=== PATIENT | female | born 1955 | race Caucasian/White ===

== ENCOUNTER 2023-05-15 10:54 | Outpatient (AMB) | payer MEDICARE, MEDICAID, SELFPAY ==
--- NOTE | 2023-05-15 10:59 | A.OFFVIS_ITS ---
Intake Vital Signs 05/15/23 11:11 Height 5 ft BMI Reason not done Patient refused/unable BP 140/90 H Blood Pressure Location Rt brachial Position Sitting Pulse 66 Pulse Source Pulse Oximeter Temp 97 F Temp Source Skin Pulse Oximetry (%) 96 Oxygen Delivery Method Room Air Comment 120 lbs per patient, on wheelchair Intake Visit Reasons: RA Intake Note: New patient here for RA. Former rheumatology patient from [facility]. 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 Accompanied by: Other Relationship Allergies No Known Allergies Allergy (Verified 05/15/23 11:11) Medication List - Last Reconciled 05/15/23 by Virgilio Bridges MD cholecalciferol (vitamin D3) (Vitamin D3) 25 mcg PO DAILY folic acid 1 mg PO DAILY gabapentin mg PO BID lisinopril 20 mg PO DAILY melatonin 10 mg PO BEDTIME methotrexate (PF) 15 mg subcut QWEEK metoprolol tartrate 75 mg PO BID morphine ER 30 mg PO TID PRN wexxuebe-naw-xsma fum-folic ac 7.5 mg iron-400 mcg tabs PO naproxen 500 mg PO BID omeprazole 20 mg PO DAILY trazodone 200 mg PO BEDTIME PRN HPI HPI Comments History of Present Illness Details Patient presents for evaluation of her rheumatoid arthritis. She is accompanied by an attendant from the [facility] that [facility] lives in at [address] [facility] in [place]. The patient has lived there for about 2 years. She has had rheumatoid arthritis since age 12. I do not have old records but the patient recalls previous treatments with gold salts, oral methotrexate and in recent decades parental methotrexate. She has been seen at [facility] by Dr. Newton a few times but no rheumatology visits in the last year. She is managed by a primary doctor name Felisha Pollard at [facility]. The patient reports that he she feels the joints are doing fairly well with the current regimen and she wants to stay on the methotrexate. She also takes naproxen 500 mg b.i.d. folic acid 1 mg daily, gabapentin 100 b.i.d. and extended release morphine 30 mg t.i.d. at the present time there is a nurse that visits the home and administers the methotrexate for the patient. They had felt that she was not capable of managing this syringes and drying up the product because of her hand deformities. She tends to disagree with that but none the less has accepted them giving her the shots. She gets lab work every few months. With the records I have reviewed the last were done last fall but she claims there were more recent labs done. She has trouble sleeping at night and takes 200 mg trazodone at night, melatonin, and the above-mentioned gabapentin. She has had bilateral knee replacements which seem to be reasonably comfortable but she says she cannot stand because of continued pain in the right hip. The left hip replacement she thinks also has loosened and it is painful. She does transfers from the chair but has not stood up in years. She also had surgery on the left elbow 25 years ago. In the last 10 years the elbow has dislocated. She does not have any pain but the arm is pretty useless. She is able to hold the forearm with the other hand in the hand still grass somewhat effectively. She gets some assistance with dressing but is able to feed herself. It sounds like she was last at home alone about 6 years ago. She spent 4 years of her life living at a longterm and then with COVID she was transferred to the [facility] that she currently is living at. Apparently recently some sertraline was started for depressive symptoms. [facility] Medical History (Updated 05/15/23 @ 18:01 by Virgilio Bridges MD) Hx of breast cancer History of DVT of lower extremity History of chronic pain Hx of rheumatoid arthritis Anxiety HTN (hypertension) Surgical History Hx of shoulder surgery History of surgery on right wrist History of bilateral knee replacement History of hip surgery Hx of mastectomy Social History (Updated 05/15/23 @ 11:05 by JOCELYNE Vaughn) Household Members Other:: [facility] Housing: Other Housing Other:: [employer] Alcohol intake: former Patient Tobacco Use Status: Former Tobacco user Review of Systems Const Details: Negative for appetite change, weight change, fever, chills, malaise and fatigue Eyes Details: Negative for vision change, dry eyes,headaches and dizziness ENT Details: Negative for hearing change, tinnitus, oral ulcer, nose bleeds and oral dryness. Card Details: Negative chest pain, edema and syncope Resp Details: Negative for SOB, cough and wheezing GI Details: Negative indigestion/heartburn, nausea, abdominal pain, bowel changes, diarrhea, constipation and bloody stool. Details: Negative for dysuria, hematuria, nocturia, decreased force/flow and genital discharge Skin/Breast Details: She had a sore on the right 1st toe that seems to be healing. Negative for itching, rash, hives, Raynaud's symptoms, sun sensitivity, and skin cancer Neuro Details: Negative for epilepsy, palsy, stroke, changes in speech, tingling and weakness Psych Details: Negative for anxiety, depression and stress Endo Details: Negative for polyuria and polydypsia Gregorio/Lymph Details: Negative for excessive bruising or bleeding. Physical Exam Vital Signs: Last Vital Signs Temp 97 F 05/15/23 11:11 Pulse 66 05/15/23 11:11 BP 140/90 H 05/15/23 11:11 Pulse Ox 96 05/15/23 11:11 Oxygen Delivery Method Room Air 05/15/23 11:11 APPEARANCE: Patient in no acute distress; examined in her wheelchair EYES no redness, pupils equal and reactive to light, eyelids normal EARS: External ear normal, canal clear and tympanic membrane normal. NOSE/SINUS: Airflow through both nares, no nasal discharge, no bleeding THROAT: Oral mucosa moist, no ulcerations NECK: No thyromegaly or masses, no adenopathy, trachea midline. HEART: Regulrar rhythm, S1-S2 heard, no murmurs, rubs or gallops. LUNG: Clear to percussion and auscultation ABD: Normal bowel sounds, no organomegaly, masses or tenderness. EXTREMITIES: No edema, no calf tenderness, normal peripheral pulses. NEURO: Oriented and alert x3. No focal weakness. Reflexes symmetric. No focal weakness. SKIN: There is a 3-4 mm healing ulcer of th right 1st toe. The surrounding tissue does not look infected. No other inflammatory or neoplastic lesions. Normal color and turgor JOINT EXAM:.?? Cervical Spine: Some decrease in range of motion but without pain. No tenderness. Thoracic Spine:.? No scoliosis.? No tenderness on palpation. Lumbar Spine:.? Alignment normal.? No tenderness. Chest Wall:.? No tenderness, swelling, increased warmth or erythema. Hands: Right: There is MCP swelling with proximal phalanx subluxation in all the digits. There is also some mild small tissue swelling in the PIP joints and ulnar deviation with flexion deformity at the MCPs. None of these areas are tender. No sensory loss. Left: Mild soft tissue swelling, flexion deformity and subluxation at the MCP joints. None of these MCPs are tender however. Some degree of flexion deformity at the PIP is without tenderness. No sensory loss. No breaks in the skin. Wrists:.? Right: The wrist has about 10 degrees of flexion or extension with ulnar deviation but no tenderness. There is some slight thickening but no redness or warmth. Left: She flexes and extends only about 30 degrees with no pain. No tenderness or swelling. Some ulnar deviation. Elbows:. Right: She flexes to about 100 degrees. She lacks about 40 degrees of full extension. There is soft tissue swelling and slight tenderness over the elbow joint. There is a soft tissue, fluctuant lump over the olecranon but no drainage, tenderness or redness. Left: The left elbow joint is not really palpable. One can feel the end of the humerus which apparently has been dislocated or fractured away from the previous joint. The area is not tender. There are no breaks in the skin. She has no ability to maneuver the forearm at the elbow. The proximal forearm is some thickening consistent with the remains of her previous joint but is not tender. She can peanut picker the left forearm with the right hand and maneuver the hand to functional position that she can grass with the left hand. Shoulders: Right: Mild pain with abduction to 135 degrees. There is pain with more than 20 degrees of internal or external rotation with minimal anterior tenderness. There is some abductor weakness but no swelling. Left: Mild to moderate pain with abduction at 100 degrees or with attempts at rotation. There is some abductor weakness but no swelling. No adenopathy. Hips:.? Not examined today because she is in the wheelchair. Hip bursa:.? Not examined Knees:.?? There are signs of surgical scars anteriorly in both knees. Left knee has pain-free range of motion. The right knee has some mild discomfort at the extremes of flexion or extension. No tenderness, fluctuance, redness or swelling. Ankles:.? There is some valgus deformity of both ankles. Inversion and eversion are limited but AP motion seems to be intact with mild pain at the extremes. No tenderness. Feet:.? There is bilateral pes planus deformity and valgus at the ankle. There is lateral deviation of all the toes with some slight thickening at the 1st 3 MTPs bilaterally. None of these areas are tender. On the medial aspect of the right 1st toe is an eschar that seems to be healing. No signs of infection currently. ? Results Reviewed Results Reviewed: Longstanding, destructive and deforming rheumatoid arthritis with currently not much in the way of tender joints. I think most disease is been either burnt out or is controlled with current methotrexate. It sounds like she has had some monitoring of the blood work within the last year but I do not have the details. We will see if we can get lab work today. If that is okay she can certainly stay with the current dose of methotrexate. Another lab should be done in about 3 months and we will try to schedule her back here for 6 month return where we can do lab work at that point. It sounds like she has had orthopedic evaluation in the past to see if she could be rehabilitated with surgery on the right hip but it was declined even at [facility]. She is not all that uncomfortable although is on 30 mg t.i.d. of MS Jony. She says she does not want to try to taper that currently. Laboratory Tests 05/15/23 12:00 WBC 8.9 Hgb 14.6 ESR 2 Creatinine 0.65 AST 14 ALT 10 C-Reactive Protein 0.12 Assessment & Plan Assessment & Plan (1) detention use of drug: Code(s): Z79.899 - Other custodial (current) drug therapy (2) Rheumatoid arthritis: Code(s): M06.9 - Rheumatoid arthritis, unspecified Plan Longstanding, destructive and deforming rheumatoid arthritis with currently not much in the way of tender joints. I think most of the RA has been either burnt out or is controlled with current methotrexate. It sounds like she has had some monitoring of the blood work within the last year but I do not have the details. We were able to get lab work today. If that is okay she can certainly stay with the current dose of methotrexate. Another lab should be done in about 3 months (CBC and Chem panel) and we will try to schedule her back here for a 6 month return and we can do lab work at that point. It sounds like she has had orthopedic evaluations in the past to see if she could be rehabilitated with surgery on the right hip but she says surgery was declined even at [facility]. She is not all that uncomfortable although is on 30 mg t.i.d. of MS Contin. She says she does not want to try to taper that currently. Orders: Orders Alanine Aminotransferase Today Z79.899 - Other custodial (current) drug therapy Aspartate Amino Transferase Today Z79.899 - Other custodial (current) drug therapy C Reactive Protein Today M06.9 - Rheumatoid arthritis, unspecified Complete Blood Count Auto Diff Today Z79.899 - Other custodial (current) drug therapy Erythrocyte Sedimentation Rate Today M06.9 - Rheumatoid arthritis, unspecified Creatinine Today Z79.899 - Other manager long term care (current) drug therapy Medications: New sertraline 50 mg PO DAILY 30 tabs 5RF Coding Level of Care Code New Pt Level 3 (23278) Diagnoses detention use of drug Z79.899 Rheumatoid arthritis M06.9
[2023-05-15 11:11] VITALS: BP 140/90; PULSE 66; TEMP 36.1; O2SAT 96
--- NOTE | 2023-05-17 18:56 | A.OFFVIS_ITS ---
Intake Vital Signs 05/15/23 11:11 Height 5 ft BMI Reason not done Patient refused/unable BP 140/90 H Blood Pressure Location Rt brachial Position Sitting Pulse 66 Pulse Source Pulse Oximeter Temp 97 F Temp Source Skin Pulse Oximetry (%) 96 Oxygen Delivery Method Room Air Comment 120 lbs per patient, on wheelchair Intake Visit Reasons: RA Allergies No Known Allergies Allergy (Verified 05/15/23 11:11) Medication List - Last Reconciled 05/15/23 by Virgilio Bridges MD cholecalciferol (vitamin D3) (Vitamin D3) 25 mcg PO DAILY folic acid 1 mg PO DAILY gabapentin mg PO BID lisinopril 20 mg PO DAILY melatonin 10 mg PO BEDTIME methotrexate (PF) 15 mg subcut QWEEK metoprolol tartrate 75 mg PO BID morphine ER 30 mg PO TID PRN wbljdohe-ohu-sdys fum-folic ac 7.5 mg iron-400 mcg tabs PO naproxen 500 mg PO BID omeprazole 20 mg PO DAILY trazodone 200 mg PO BEDTIME PRN PFSH Medical History (Updated 05/15/23 @ 18:01 by Virgilio Bridges MD) Hx of breast cancer History of DVT of lower extremity History of chronic pain Hx of rheumatoid arthritis Anxiety HTN (hypertension) Surgical History Hx of shoulder surgery History of surgery on right wrist History of bilateral knee replacement History of hip surgery Hx of mastectomy Social History (Updated 05/15/23 @ 11:05 by JOCELYNE Vaughn) Household Members Other:: [facility] Housing: Other Housing Other:: [employer] Alcohol intake: former Patient Tobacco Use Status: Former Tobacco user Physical Exam Vital Signs: Last Vital Signs Temp 97 F 05/15/23 11:11 Pulse 66 05/15/23 11:11 BP 140/90 H 05/15/23 11:11 Pulse Ox 96 05/15/23 11:11 Oxygen Delivery Method Room Air 05/15/23 11:11 Assessment & Plan Assessment & Plan (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: Code(s): Z79.899 - Other [facility] (current) drug therapy (2) Rheumatoid arthritis: Code(s): M06.9 - Rheumatoid arthritis, unspecified Orders: Orders Alanine Aminotransferase 09/19/23 Z79.899 - Other [facility] (current) drug therapy Aspartate Amino Transferase 05/15/23 Z79.899 - Other [facility] (current) drug therapy C Reactive Protein 05/15/23 M06.9 - Rheumatoid arthritis, unspecified Complete Blood Count Auto Diff 05/15/23 Z79.899 - 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
== END 2023-05-15 11:51 | disposition home or self-care (01) ==
PROVIDERS: PCP Family Medicine; Visit Provider Internal Medicine Rheumatology
DX: Z79.899 Other long term (current) drug therapy (principal); M06.9 Rheumatoid arthritis, unspecified
CPT/HCPCS: 99203

== ENCOUNTER → 2023-05-15 10:54 | Outpatient (BNVA) | payer MEDICARE, MEDICAID, SELFPAY | PROVIDERS: Visit Provider Internal Medicine Rheumatology ==

== ENCOUNTER 2023-05-15 11:54 | Outpatient (REF) | payer MEDICARE, MEDICAID, SELFPAY ==
[2023-05-15 13:34] LABS: MANUAL DIFF FLAG NO
[2023-05-15 13:43] LABS: Basophils Percent Auto 0.2 % (0-2); Eosinophils Absolute Auto 0.1 X10*3/uL (0.0-0.4); Eosinophils Percent Auto 0.7 % (0-4); Hematocrit 43.4 % (37.0-47.0); Hemoglobin 14.6 g/dl (12.0-16.0); Imm Gran Abs Auto 0.03 X10*3/uL (0.00-0.03); Imm Gran Pct Auto 0.3 % (0.0-0.4); Lymphocytes Absolute Auto 1.2 X10*3/uL (1.2-4.9); Lymphocytes Percent Auto 13.2 % (20-40); Mean Corpuscular HGB Conc 33.6 g/dl (31.0-35.0); Mean Corpuscular Hemoglobin 32.7 pg (27.0-33.0); Mean Corpuscular Volume 97.1 fL (80.0-98.0); Mean Platelet Volume 11.1 fL (9.4-12.3); Monocytes Absolute Auto 0.5 X10*3/uL (0.1-1.2); Neutrophils Absolute Auto 7.2 x10*3/uL (2.0-8.3); Neutrophils Percent Auto 80.6 % (45-73); Platelet Count 317 X10*3/uL (160-400); Red Blood Count 4.47 X10*6/uL (4.20-5.50); Red Cell Distribution Width 12.8 % (11.0-16.0); White Blood Count 8.9 X10*3/uL (4.8-10.8)
[2023-05-15 14:01] LABS: Alanine Aminotransferase 10 U/L (0-31); Aspartate Amino Transferase 14 U/L (5-31); C Reactive Protein 0.12 mg/dL (< or = 0.50); Estimated Glomerular Filt Rate > 60
[2023-05-15 15:23] LABS: Erythrocyte Sedimentation Rate 2 MM/HR (0-20)
== END 2023-05-15 11:55 | disposition home or self-care (01) ==
LOC: HO.10HDL 11:54
PROVIDERS: Visit Provider Internal Medicine Rheumatology
DX: M06.9 Rheumatoid arthritis, unspecified (principal); Z79.899 Other long term (current) drug therapy
CPT/HCPCS: 36415; 82565; 84450; 84460; 85025; 85652; 86140

== ENCOUNTER 2024-05-19 06:28 | Outpatient (REF) | payer MEDICARE, MEDICAID, SELFPAY ==
[2024-05-19 06:05] LABS: MANUAL DIFF FLAG NO
[2024-05-19 07:03] LABS: Basophils Percent Auto 0.3 % (0-2); Eosinophils Absolute Auto 0.3 X10*3/uL (0.0-0.4); Eosinophils Percent Auto 3.2 % (0-4); Hematocrit 31.2 % (37.0-47.0); Hemoglobin 9.5 g/dl (12.0-16.0); Imm Gran Abs Auto 0.05 X10*3/uL (0.00-0.03); Imm Gran Pct Auto 0.5 % (0.0-0.4); Lymphocytes Absolute Auto 1.5 X10*3/uL (1.2-4.9); Lymphocytes Percent Auto 15.9 % (20-40); Mean Corpuscular HGB Conc 30.4 g/dl (31.0-35.0); Mean Corpuscular Hemoglobin 27.5 pg (27.0-33.0); Mean Corpuscular Volume 90.2 fL (80.0-98.0); Mean Platelet Volume 11.3 fL (9.4-12.3); Monocytes Absolute Auto 0.7 X10*3/uL (0.1-1.2); Monocytes Percent Auto 7.6 % (2-11); Neutrophils Absolute Auto 6.9 x10*3/uL (2.0-8.3); Neutrophils Percent Auto 72.5 % (45-73); Platelet Count 420 X10*3/uL (160-400); Red Blood Count 3.46 X10*6/uL (4.20-5.50); Red Cell Distribution Width 13.4 % (11.0-16.0); White Blood Count 9.5 X10*3/uL (4.8-10.8)
[2024-05-19 07:26] LABS: Alanine Aminotransferase 12 U/L (0-31); Albumin Level 3.2 g/dL (3.5-5.0); Alkaline Phosphatase 92 U/L (39-117); Anion Gap 13 (12-20); Aspartate Amino Transferase 15 U/L (5-31); Bilirubin Direct < 0.2 mg/dL (0.0-0.5); Bilirubin Total 0.2 mg/dL (0.0-1.0); Blood Urea Nitrogen 25 mg/dL (9-16); Calcium 9.6 mg/dL (8.4-10.2); Carbon Dioxide 26 mmol/L (22-29); Chloride 107 mmol/L (96-108); Estimated Glomerular Filt Rate > 60; Glucose Random 83 mg/dL (60-115); Potassium 4.6 mmol/L (3.3-5.1); Sodium 141 mmol/L (135-145); Total Protein 6.3 g/dL (6.5-8.0)
== END 2024-05-19 06:29 | disposition home or self-care (01) ==
LOC: HO.MMNH1L 06:28
PROVIDERS: Visit Provider Hospitalist
DX: A49.02 Methicillin resistant Staphylococcus aureus infection, unspecified site (principal); I10 Essential (primary) hypertension
CPT/HCPCS: 36415; 80053; 82248; 82550; 85025

== ENCOUNTER 2024-05-26 06:57 | Outpatient (REF) | payer MEDICARE, MEDICAID, SELFPAY ==
[2024-05-26 05:48] LABS: MANUAL DIFF FLAG NO
[2024-05-26 06:57] LABS: Basophils Percent Auto 0.3 % (0-2); Eosinophils Absolute Auto 0.4 X10*3/uL (0.0-0.4); Eosinophils Percent Auto 4.4 % (0-4); Hematocrit 32.4 % (37.0-47.0); Hemoglobin 9.7 g/dl (12.0-16.0); Imm Gran Abs Auto 0.06 X10*3/uL (0.00-0.03); Imm Gran Pct Auto 0.7 % (0.0-0.4); Lymphocytes Absolute Auto 1.8 X10*3/uL (1.2-4.9); Lymphocytes Percent Auto 19.6 % (20-40); Mean Corpuscular HGB Conc 29.9 g/dl (31.0-35.0); Mean Corpuscular Hemoglobin 26.9 pg (27.0-33.0); Mean Corpuscular Volume 89.8 fL (80.0-98.0); Mean Platelet Volume 11.2 fL (9.4-12.3); Monocytes Absolute Auto 0.8 X10*3/uL (0.1-1.2); Monocytes Percent Auto 8.6 % (2-11); Neutrophils Percent Auto 66.4 % (45-73); Platelet Count 398 X10*3/uL (160-400); Red Blood Count 3.61 X10*6/uL (4.20-5.50); Red Cell Distribution Width 13.5 % (11.0-16.0)
[2024-05-26 07:25] LABS: Anion Gap 14 (12-20); Blood Urea Nitrogen 31 mg/dL (9-16); Calcium 9.7 mg/dL (8.4-10.2); Carbon Dioxide 25 mmol/L (22-29); Chloride 106 mmol/L (96-108); Estimated Glomerular Filt Rate > 60; Glucose Random 78 mg/dL (60-115); Potassium 4.6 mmol/L (3.3-5.1); Sodium 140 mmol/L (135-145)
== END 2024-05-26 06:58 | disposition home or self-care (01) ==
LOC: HO.MMNH1L 06:57
PROVIDERS: Visit Provider Hospitalist
DX: A49.02 Methicillin resistant Staphylococcus aureus infection, unspecified site (principal); I10 Essential (primary) hypertension
CPT/HCPCS: 36415; 80048; 85025

== ENCOUNTER 2024-06-02 06:31 | Outpatient (REF) | payer MEDICARE, MEDICAID, SELFPAY ==
[2024-06-02 06:13] LABS: MANUAL DIFF FLAG NO
[2024-06-02 07:10] LABS: Basophils Percent Auto 0.3 % (0-2); Eosinophils Absolute Auto 0.3 X10*3/uL (0.0-0.4); Eosinophils Percent Auto 3.6 % (0-4); Hematocrit 31.3 % (37.0-47.0); Hemoglobin 9.7 g/dl (12.0-16.0); Imm Gran Abs Auto 0.02 X10*3/uL (0.00-0.03); Imm Gran Pct Auto 0.3 % (0.0-0.4); Lymphocytes Absolute Auto 1.4 X10*3/uL (1.2-4.9); Lymphocytes Percent Auto 18.1 % (20-40); Mean Corpuscular Volume 87.2 fL (80.0-98.0); Mean Platelet Volume 11.9 fL (9.4-12.3); Monocytes Absolute Auto 0.5 X10*3/uL (0.1-1.2); Monocytes Percent Auto 6.6 % (2-11); Neutrophils Absolute Auto 5.6 x10*3/uL (2.0-8.3); Neutrophils Percent Auto 71.1 % (45-73); Platelet Count 303 X10*3/uL (160-400); Red Blood Count 3.59 X10*6/uL (4.20-5.50); Red Cell Distribution Width 13.7 % (11.0-16.0); White Blood Count 7.8 X10*3/uL (4.8-10.8)
[2024-06-02 07:27] LABS: Anion Gap 10 (12-20); Blood Urea Nitrogen 30 mg/dL (9-16); Calcium 9.4 mg/dL (8.4-10.2); Carbon Dioxide 27 mmol/L (22-29); Chloride 108 mmol/L (96-108); Estimated Glomerular Filt Rate > 60; Glucose Random 84 mg/dL (60-115); Sodium 141 mmol/L (135-145)
== END 2024-06-02 06:32 | disposition home or self-care (01) ==
LOC: HO.MMNH1L 06:31
PROVIDERS: Visit Provider Hospitalist
DX: A49.02 Methicillin resistant Staphylococcus aureus infection, unspecified site (principal); I10 Essential (primary) hypertension
CPT/HCPCS: 36415; 80048; 85025

== ENCOUNTER 2024-06-09 06:47 | Outpatient (REF) | payer MEDICARE, MEDICAID, SELFPAY ==
[2024-06-09 06:04] LABS: MANUAL DIFF FLAG NO
[2024-06-09 07:14] LABS: Basophils Percent Auto 0.3 % (0-2); Eosinophils Absolute Auto 0.3 X10*3/uL (0.0-0.4); Hematocrit 33.6 % (37.0-47.0); Hemoglobin 10.2 g/dl (12.0-16.0); Imm Gran Abs Auto 0.05 X10*3/uL (0.00-0.03); Imm Gran Pct Auto 0.5 % (0.0-0.4); Lymphocytes Absolute Auto 1.5 X10*3/uL (1.2-4.9); Lymphocytes Percent Auto 15.1 % (20-40); Mean Corpuscular HGB Conc 30.4 g/dl (31.0-35.0); Mean Corpuscular Hemoglobin 26.5 pg (27.0-33.0); Mean Corpuscular Volume 87.3 fL (80.0-98.0); Mean Platelet Volume 11.6 fL (9.4-12.3); Monocytes Absolute Auto 0.7 X10*3/uL (0.1-1.2); Monocytes Percent Auto 7.2 % (2-11); Neutrophils Absolute Auto 7.1 x10*3/uL (2.0-8.3); Neutrophils Percent Auto 73.9 % (45-73); Platelet Count 327 X10*3/uL (160-400); Red Blood Count 3.85 X10*6/uL (4.20-5.50); Red Cell Distribution Width 14.6 % (11.0-16.0); White Blood Count 9.6 X10*3/uL (4.8-10.8)
[2024-06-09 07:16] LABS: Anion Gap 14 (12-20); Blood Urea Nitrogen 25 mg/dL (9-16); Calcium 9.3 mg/dL (8.4-10.2); Carbon Dioxide 26 mmol/L (22-29); Chloride 105 mmol/L (96-108); Estimated Glomerular Filt Rate > 60; Glucose Random 86 mg/dL (60-115); Potassium 4.3 mmol/L (3.3-5.1); Sodium 141 mmol/L (135-145)
== END 2024-06-09 06:48 | disposition home or self-care (01) ==
LOC: HO.MMNH1L 06:47
PROVIDERS: Visit Provider Hospitalist
DX: A49.02 Methicillin resistant Staphylococcus aureus infection, unspecified site (principal); I10 Essential (primary) hypertension
CPT/HCPCS: 36415; 80048; 85025

== ENCOUNTER 2024-06-16 06:32 | Outpatient (REF) | payer MEDICARE, MEDICAID, SELFPAY ==
[2024-06-16 06:01] LABS: MANUAL DIFF FLAG NO
[2024-06-16 07:03] LABS: Basophils Percent Auto 0.3 % (0-2); Eosinophils Absolute Auto 0.2 X10*3/uL (0.0-0.4); Eosinophils Percent Auto 1.8 % (0-4); Hematocrit 33.8 % (37.0-47.0); Hemoglobin 10.3 g/dl (12.0-16.0); Imm Gran Abs Auto 0.03 X10*3/uL (0.00-0.03); Imm Gran Pct Auto 0.3 % (0.0-0.4); Lymphocytes Absolute Auto 1.3 X10*3/uL (1.2-4.9); Lymphocytes Percent Auto 11.7 % (20-40); Mean Corpuscular HGB Conc 30.5 g/dl (31.0-35.0); Mean Corpuscular Hemoglobin 26.1 pg (27.0-33.0); Mean Corpuscular Volume 85.8 fL (80.0-98.0); Mean Platelet Volume 11.1 fL (9.4-12.3); Monocytes Absolute Auto 0.8 X10*3/uL (0.1-1.2); Monocytes Percent Auto 7.4 % (2-11); Neutrophils Absolute Auto 8.9 x10*3/uL (2.0-8.3); Neutrophils Percent Auto 78.5 % (45-73); Platelet Count 373 X10*3/uL (160-400); Red Blood Count 3.94 X10*6/uL (4.20-5.50); Red Cell Distribution Width 14.2 % (11.0-16.0); White Blood Count 11.4 X10*3/uL (4.8-10.8)
[2024-06-16 07:33] LABS: Anion Gap 14 (12-20); Blood Urea Nitrogen 25 mg/dL (9-16); Calcium 9.5 mg/dL (8.4-10.2); Carbon Dioxide 24 mmol/L (22-29); Chloride 106 mmol/L (96-108); Estimated Glomerular Filt Rate > 60; Glucose Random 100 mg/dL (60-115); Potassium 3.9 mmol/L (3.3-5.1); Sodium 140 mmol/L (135-145)
== END 2024-06-16 06:33 | disposition home or self-care (01) ==
LOC: HO.MMNH1L 06:32
PROVIDERS: Visit Provider Hospitalist
DX: A49.02 Methicillin resistant Staphylococcus aureus infection, unspecified site (principal); I10 Essential (primary) hypertension
CPT/HCPCS: 36415; 80048; 85025

== ENCOUNTER 2024-06-23 06:23 | Outpatient (REF) | payer MEDICARE, SELFPAY ==
[2024-06-23 06:02] LABS: MANUAL DIFF FLAG NO
[2024-06-23 07:07] LABS: Basophils Percent Auto 0.3 % (0-2); Eosinophils Absolute Auto 0.2 X10*3/uL (0.0-0.4); Eosinophils Percent Auto 2.8 % (0-4); Hematocrit 31.6 % (37.0-47.0); Hemoglobin 9.9 g/dl (12.0-16.0); Imm Gran Abs Auto 0.03 X10*3/uL (0.00-0.03); Imm Gran Pct Auto 0.4 % (0.0-0.4); Lymphocytes Absolute Auto 1.9 X10*3/uL (1.2-4.9); Lymphocytes Percent Auto 27.1 % (20-40); Mean Corpuscular HGB Conc 31.3 g/dl (31.0-35.0); Mean Corpuscular Hemoglobin 26.5 pg (27.0-33.0); Mean Corpuscular Volume 84.7 fL (80.0-98.0); Mean Platelet Volume 11.5 fL (9.4-12.3); Monocytes Absolute Auto 0.6 X10*3/uL (0.1-1.2); Monocytes Percent Auto 8.7 % (2-11); Neutrophils Absolute Auto 4.3 x10*3/uL (2.0-8.3); Neutrophils Percent Auto 60.7 % (45-73); Platelet Count 324 X10*3/uL (160-400); Red Blood Count 3.73 X10*6/uL (4.20-5.50); Red Cell Distribution Width 13.8 % (11.0-16.0); White Blood Count 7.1 X10*3/uL (4.8-10.8)
[2024-06-23 07:12] LABS: Anion Gap 14 (12-20); Blood Urea Nitrogen 31 mg/dL (9-16); Calcium 9.5 mg/dL (8.4-10.2); Carbon Dioxide 23 mmol/L (22-29); Chloride 103 mmol/L (96-108); Estimated Glomerular Filt Rate > 60; Glucose Random 78 mg/dL (60-115); Potassium 4.2 mmol/L (3.3-5.1); Sodium 136 mmol/L (135-145)
== END 2024-06-23 06:24 | disposition home or self-care (01) ==
LOC: HO.MMNH1L 06:23
PROVIDERS: Visit Provider Hospitalist
DX: A49.02 Methicillin resistant Staphylococcus aureus infection, unspecified site (principal); I10 Essential (primary) hypertension
CPT/HCPCS: 36415; 80048; 85025

== ENCOUNTER 2024-06-30 06:25 | Outpatient (REF) | payer MEDICARE, MEDICAID, SELFPAY ==
[2024-06-30 06:00] LABS: MANUAL DIFF FLAG NO
[2024-06-30 07:01] LABS: Anion Gap 15 (12-20); Blood Urea Nitrogen 19 mg/dL (9-16); Calcium 9.8 mg/dL (8.4-10.2); Carbon Dioxide 23 mmol/L (22-29); Chloride 104 mmol/L (96-108); Estimated Glomerular Filt Rate > 60; Glucose Random 92 mg/dL (60-115); Potassium 4.1 mmol/L (3.3-5.1); Sodium 138 mmol/L (135-145)
[2024-06-30 07:02] LABS: Basophils Percent Auto 0.2 % (0-2); Eosinophils Absolute Auto 0.1 X10*3/uL (0.0-0.4); Eosinophils Percent Auto 1.3 % (0-4); Hematocrit 33.9 % (37.0-47.0); Hemoglobin 10.7 g/dl (12.0-16.0); Imm Gran Abs Auto 0.03 X10*3/uL (0.00-0.03); Imm Gran Pct Auto 0.4 % (0.0-0.4); Lymphocytes Absolute Auto 1.1 X10*3/uL (1.2-4.9); Lymphocytes Percent Auto 13.4 % (20-40); Mean Corpuscular HGB Conc 31.6 g/dl (31.0-35.0); Mean Corpuscular Hemoglobin 25.7 pg (27.0-33.0); Mean Corpuscular Volume 81.5 fL (80.0-98.0); Mean Platelet Volume 11.3 fL (9.4-12.3); Monocytes Absolute Auto 0.6 X10*3/uL (0.1-1.2); Monocytes Percent Auto 7.1 % (2-11); Neutrophils Absolute Auto 6.6 x10*3/uL (2.0-8.3); Neutrophils Percent Auto 77.6 % (45-73); Platelet Count 415 X10*3/uL (160-400); Red Blood Count 4.16 X10*6/uL (4.20-5.50); Red Cell Distribution Width 13.8 % (11.0-16.0); White Blood Count 8.5 X10*3/uL (4.8-10.8)
== END 2024-06-30 06:26 | disposition home or self-care (01) ==
LOC: HO.MMNH1L 06:25
PROVIDERS: Visit Provider Hospitalist
DX: A49.02 Methicillin resistant Staphylococcus aureus infection, unspecified site (principal); I10 Essential (primary) hypertension
CPT/HCPCS: 36415; 80048; 85025